=== PATIENT | female | born 1965 | race Caucasian/White ===

== ENCOUNTER → 2016-09-28 | Outpatient (CLI) | payer OTHER ==
--- NOTE | 2016-09-28 23:22 | DX ---
DEXA Bone Mineral Densitometry Clinical Indications: 51-year-old postmenopausal female with osteoporosis. Technique: Bone Mineral Densitometry (BMD) by Dual Energy X-Ray Absorptiometry (DEXA) was performed utilizing the IMT scanner. The lumbar spine was evaluated in the AP projection. The bilat eral hips and forearm were evaluated in the AP projection. Vertebral fracture assessment was also pe rformed. Comparison: July 26, 2013. AP Lumbar Spine: The L1, L2, L3, and L4 vertebral bodies were evaluated. BMD: 0.891 gm/cm2. T-score: -2.5 SD. Z-score: -1.9 SD. 1.7% increase from the prior examination. AP Left Hip: Total BMD: 0.834 gm/cm2. T-score: -1.4 SD. Z-score: -0.9 SD. 1% increase from the prior examination. AP Right Hip: Total BMD: 0.860 gm/cm2. T-score: -1.2 SD. Z-score: -0.7 SD. 4% increase from the prior examination. AP Left Forearm, 09/21: BMD: 0.809 gm/cm2. T-score: -0.8 SD. Z-score: -0.4 SD. -4% change from the prior examination. Vertebral Fracture Assessment: No significant fracture deformity. No prevertebral aortic calcificat ion, significant marginal bone spurring, facet arthrosis, or intrinsic vertebral body sclerosis that would affect the accuracy of the lumbar spine BMD measurement. Conclusion: Considering the lowest measured site, the patient is osteoporotic. The ten year FRAX risk for any major osteoporotic fracture , which excludes the risk for a wrist frac ture, is 23.0% and for a hip fracture is 2.3%. Any bone loss in this patient is probably related to aging or estrogen deficiency. Recommendations 1. Consider excluding secondary metabolic causes of bone loss (reported to be present in as many as 30% of patients with normal Z scores). Laboratory evaluation might include hydroxy vitamin D3 level, TSH, PTH, calcium, 24-hour urine calcium, phosphorous, albumin, creatinine, alkaline phosphatase, ser um electrophoresis (SPEP or UPEP), antitissue transglutaminase antibody levels (celiac disease) and CBC. If secondary causes are excluded, then consider initiating treatment with a bisphosphonate (suc h as Fosamax, Actonel or Boniva). If the patient is unable to use an oral bisphosphonate, another age nt such as IV bisphosphonates (Boniva or Reclast), teriparatide (Forteo), or a selective estrogen rec eptor modulator (Evista) might be considered. 2. Supplementing an insufficient diet to achieve total intakes of 1500 mg calcium and 800 Internatio nal Units of vitamin D daily should be considered. 3. Osteoporosis prevention and treatment begin by modifying risk factors. The patient should be enc ouraged to participate in a regular exercise program that includes weightbearing and muscle-strengthe sierra regimens, as is clinically appropriate. 4. Recommend follow up DEXA in one year to assess the efficacy of pharmacologic intervention and/or correction of appropriate secondary cause.
== END ==
LOC: FIMAGING 11:14
PROVIDERS: ATTEND Internal Medicine Endocrinology, Diabetes & Metabolism
DX: M81.8 Other osteoporosis without current pathological fracture (principal)

== ENCOUNTER → 2017-04-26 | Outpatient (CLI) | payer OTHER | LOC: FIMAGING 07:42 | PROVIDERS: ATTEND Internal Medicine Hematology & Oncology | DX: Z12.31 Encounter for screening mammogram for malignant neoplasm of breast (principal); Z85.3 Personal history of malignant neoplasm of breast | CPT/HCPCS: G0202 ==

== ENCOUNTER → 2018-06-28 | Outpatient (CLI) | payer OTHER | LOC: FIMAGING 14:43 | PROVIDERS: ATTEND Internal Medicine Hematology & Oncology | DX: Z12.31 Encounter for screening mammogram for malignant neoplasm of breast (principal); Z80.3 Family history of malignant neoplasm of breast ==